=== PATIENT | male | born 1965 | race Caucasian/White ===

== ENCOUNTER 2016-09-16 23:24 | Inpatient (IN) | payer SELFPAY ==
[~2016-09-16] VITALS: Ht 167.6 cm; Wt 77.7 kg
[2016-09-16 23:28] VITALS: BP 128/67; PULSE 106; RESP 15; TEMP 98.8; O2SAT 96
[2016-09-17] VITALS (7 sets, daily range): BP systolic 112–160; BP diastolic 68–88; PULSE 61–79; RESP 16–18; TEMP 97–97.5; O2SAT 94–97
--- NOTE | 2016-09-17 01:16 | PD ---
HPI Chief Complaint: Injury Time Seen by Provider: 01:13 Travel History International Travel<30 days: No Contact w/Intl Traveler<30days: No Traveled to known affect area: No History of Present Illness HPI 51-year-old white male presents to emergency department for evaluation of right ankle pain and swelling. He states he had a inversion injury down in [place] one week ago. He was states that he was seen in the emergency department had an x- ray. He was told that the ankle was severely sprain but not broken. He was given Maxim wrap and crutches. He states that he's been partially ambulatory on the foot and has noted increasing swelling in his ankle into the foot. States it throbs worse at night when he lays down and his foot in bed. He denies any numbness or tingling. He denies any other injuries. Pain is mild to moderate. PFSH Past Medical History Medical History: Denies Significant Hx Tetanus Vaccination: < 5 Years Past Surgical History Narrative Surgical Left hamstring tear Social History Alcohol Use: Yes Tobacco Use: Yes Allergies-Medications (Allergen,Severity, Reaction): Coded Allergies: No Known Allergies (Unverified , 09/17/16) Reported Meds & Prescriptions Reported Meds & Active Scripts Active No Active Prescriptions or Reported Medications Review of Systems Except as stated in HPI: all other systems reviewed are Neg Physical Exam Narrative GENERAL: Well-developed, well-nourished in no acute distress. Nontoxic appearing. HEAD: Normocephalic, atraumatic. EYES: Pupils equal round and reactive. Extraocular motions intact. No scleral icterus. No injection or drainage. ENT: TMs clear without erythema. The external auditory canals clear. Nose: clear . Posterior pharynx is pink and moist. No tonsillar edema or exudate. Uvula midline. Airway patent. NECK: Trachea midline.Supple, nontender, moves head freely. No central bony tenderness or spasm. CARDIOVASCULAR: Regular rate and rhythm without murmurs, gallops, or rubs. RESPIRATORY: Clear to auscultation. Breath sounds equal bilaterally. No wheezes , rales, or rhonchi. GASTROINTESTINAL: Abdomen soft, non-tender, nondistended. No hepato-splenomegaly , or palpable masses. No guarding. EXTREMITIES: Examination of the right lower extremity reveals mild to moderate swelling of the foot up into the ankle. He has pain over the lateral malleolus as well as the anterior talar fibular ligament region. No pain in the medial malleolus. No pain in the heel, Achilles, forefoot or toes. No pain in the knee or hip. The skin is intact. There is an area of resolving ecchymosis to the arch of the foot. He has intact dorsalis pedis pulse. Good Refill. BACK: Nontender without deformity or crepitance. No flank tenderness. Data Data Last Documented VS Vital Signs Date Time Temp Pulse Resp B/P Pulse Ox O2 Delivery O2 Flow Rate FiO2 09/16/16 23:28 98.8 106 15 128/67 96 Room Air Orders Ankle, Complete ([id number]) (09/17/16 01:12) Splint Or Brace Apply/Monitor (09/17/16 01:12) Splint Or Brace Apply/Monitor (09/17/16 02:10) Acetamin-Hydrocod 325-5 Mg ([place] 5-325 (09/17/16 02:15) Electrocardiogram (09/17/16 02:21) Complete Blood Count With Diff (09/17/16 02:21) Comprehensive Metabolic Panel (09/17/16 02:21) Prothrombin Time / Inr (Pt) (09/17/16 02:21) Act Partial Throm Time (Ptt) (09/17/16 02:21) Ua Includes Microscopic (09/17/16 02:21) Chest, Single Ap (09/17/16 02:21) Type And Screen (09/17/16 02:21) Admit To Inpatient (09/17/16 ) Vital Signs (Adult) Q4H (09/17/16 03:34) Activity Bed Rest (09/17/16 03:34) Intake + Output GISSELL.QSHIFT (09/17/16 03:34) Diet Npo (09/17/16 Breakfast) Sodium Chlor 0.9% 1000 Ml Inj (Ns 1000 M (09/17/16 03:34) Sodium Chloride 0.9% Flush (Ns Flush) (09/17/16 03:45) Sodium Chloride 0.9% Flush (Ns Flush) (09/17/16 09:00) Ondansetron Inj (Zofran Inj) (09/17/16 03:45) Bisacodyl Supp (Dulcolax Supp) (09/17/16 03:45) Comprehensive Metabolic Panel (09/18/16 06:00) Complete Blood Count With Diff (09/18/16 06:00) Acetaminophen (Tylenol) (09/17/16 03:45) Acetamin-Hydrocod 325-5 Mg ([place] 5-325 (09/17/16 03:45) Morphine Inj (Morphine Inj) (09/17/16 03:45) Inpatient Certification (09/17/16 ) Admit Order (Ed Use Only) (09/17/16 04:38) Consult Orthopedic (09/17/16 ) Labs Laboratory Tests Test 09/17/16 09/17/16 02:00 03:00 White Blood Count 8.4 TH/MM3 Red Blood Count 4.15 MIL/MM3 Hemoglobin 14.2 GM/DL Hematocrit 40.6 % Mean Corpuscular Volume 97.8 FL Mean Corpuscular Hemoglobin 34.2 PG Mean Corpuscular Hemoglobin 35.0 % Concent Red Cell Distribution Width 13.1 % Platelet Count 176 TH/MM3 Mean Platelet Volume 9.9 FL Neutrophils (%) (Auto) 57.9 % Lymphocytes (%) (Auto) 32.1 % Monocytes (%) (Auto) 7.6 % Eosinophils (%) (Auto) 1.9 % Basophils (%) (Auto) 0.5 % Neutrophils # (Auto) 4.9 TH/MM3 Lymphocytes # (Auto) 2.7 TH/MM3 Monocytes # (Auto) 0.6 TH/MM3 Eosinophils # (Auto) 0.2 TH/MM3 Basophils # (Auto) 0.0 TH/MM3 CBC Comment DIFF FINAL Differential Comment Prothrombin Time 10.4 SEC Prothromb Time International 0.9 RATIO Ratio Activated Partial 28.0 SEC Thromboplast Time Sodium Level 141 MEQ/L Potassium Level 4.2 MEQ/L Chloride Level 106 MEQ/L Carbon Dioxide Level 26.1 MEQ/L Anion Gap 9 MEQ/L Blood Urea Nitrogen 7 MG/DL Creatinine 0.63 MG/DL Estimat Glomerular Filtration 134 ML/MIN Rate Random Glucose 91 MG/DL Calcium Level 8.9 MG/DL Total Bilirubin 0.3 MG/DL Aspartate Amino Transf 34 U/L (AST/SGOT) Alanine Aminotransferase 49 U/L (ALT/SGPT) Alkaline Phosphatase 65 U/L Total Protein 7.3 GM/DL Albumin 4.0 GM/DL Blood Type O POSITIVE Antibody Screen NEGATIVE Blood Bank Comment Urine Color LIGHT-YELLOW Urine Turbidity CLEAR Urine pH 5.0 Urine Specific [place] 1.003 Urine Protein NEG mg/dL Urine Glucose (UA) NEG mg/dL Urine Ketones NEG mg/dL Urine Occult Blood NEG Urine Nitrite NEG Urine Bilirubin NEG Urine Urobilinogen LESS THAN 2.0 MG/DL Urine Leukocyte Esterase NEG Urine RBC LESS THAN 1 /hpf Urine WBC LESS THAN 1 /hpf MDM Medical Decision Making Medical Screen Exam Complete: Yes Emergency Medical Condition: Yes Medical Record Reviewed: Yes Interpretation(s) Right ankle: Negative for acute fracture. Positive soft tissue swelling. Differential Diagnosis MDM: High Differential diagnoses: Fracture, sprain, strain, dislocation, contusion, neurovascular injury Narrative Course X-ray of the right ankle is negative. He is given Maxim wrap. He is encouraged to continue use his crutches. This is right ankle sprain Physician Communication Physician Communication We have attempted to call Dr. Ludwig since approximately 2:15 this evening. We have placed over 4 phone calls. At 0440 We have opted to go ahead and admit to the [facility] service. Dr. Randall has accepted his admission and has requested a consult be placed for him in the morning. Diagnosis Primary Impression: right distal fibular fracture with open mortise Scripts No Active Prescriptions or Reported Meds Condition: Stable Endy Velasquez Sep 17, 2016 01:16 Elevation. Ice packs for the next 3 days. Maxim wrap and crutches. No weight-bearing and then progress to weight-bearing as tolerated. Continued 3 Advil every 6 hours. Follow-up with an orthopedist or your doctor in one week. Return to the ER if any problems Med/Other Pt SpecificInfo: No Meds Exist/No RX given Scripts No Active Prescriptions or Reported Meds Disposition: DISCHARGE HOME Condition: Endy Rodriges Sep 17, 2016 01:16
--- NOTE | 2016-09-17 02:00 | RADRPT ---
EXAM DATE/TIME: 09/17/2016 01:34 [facility] COMPARISON: No previous studies available for comparison. INDICATIONS : Fall. Right ankle pain and swelling. MEDICAL HISTORY : None. SURGICAL HISTORY : None. ENCOUNTER: Initial ACUITY: 4 - 6 days PAIN SCORE: 8/10 LOCATION: Right lateral FINDINGS: Mildly comminuted oblique fracture seen of the distal fibula with a few millimeters of posterior disp lacement. Most of the fracture is at the level of the tibiotalar joint. There is slight lateral sublu xation of the ankle mortise. The distal tibia is intact. CONCLUSION: Mildly displaced distal fibula fracture. Slight lateral subluxation of the tibiotalar joint. Brandon Cross MD on September 17, 2016 at 1:57 Board Certified Radiologist. This report was verified electronically.
[2016-09-17] MEDS ORDERED: ACETAMINOPHEN/HYDROcodone 325 MG/5 MG TAB PO ONE (02:15)
[2016-09-17 03:24] LABS: AUTOMATED NEUTROPHIL # 4.9 TH/MM3 (1.8-7.7); BASOPHIL % 0.5 % (0.0-2.0); EOSINOPHIL # 0.2 TH/MM3 (0-0.4); EOSINOPHIL % 1.9 % (0.0-4.0); HEMATOCRIT 40.6 % (39.0-51.0); HEMO FLAGS DIFF FINAL; LYMPH % 32.1 % (9.0-44.0); LYMPHOCYTE # 2.7 TH/MM3 (1.0-4.8); MEAN CELL VOLUME 97.8 FL (80.0-100.0); MEAN CORPUSCULAR HEMOGLOBIN 34.2 PG (27.0-34.0); MONO % 7.6 % (0.0-8.0); NEUT % 57.9 % (16.0-70.0); PLATELET COUNT 176 TH/MM3 (150-450); RED BLOOD COUNT 4.15 MIL/MM3 (4.50-5.90); RED CELL DISTRIBUTION WIDTH 13.1 % (11.6-17.2); WHITE BLOOD COUNT 8.4 TH/MM3 (4.0-11.0)
--- NOTE | 2016-09-17 03:30 | RADRPT ---
EXAM DATE/TIME: 09/17/2016 02:53 [facility] COMPARISON: No previous studies available for comparison. INDICATIONS : Cough. Pre op. MEDICAL HISTORY : None. SURGICAL HISTORY : None. ENCOUNTER: Initial ACUITY: 1 day PAIN SCORE: 2/10 LOCATION: Bilateral chest FINDINGS: A single view of the chest demonstrates the lungs to be symmetrically aerated without evidence of mas s, infiltrate or effusion. The cardiomediastinal contours are unremarkable. Osseous structures are intact. CONCLUSION: No evidence of acute cardiopulmonary disease. Brandon Cross MD on September 17, 2016 at 3:28 Board Certified Radiologist. This report was verified electronically.
[2016-09-17 03:36] LABS: INTERNATIONAL NORMALIZED RATIO 0.9 RATIO; PROTHROMBIN TIME - PATIENT 10.4 SEC (9.8-11.6)
[2016-09-17 03:39] LABS: ALT (GPT) 49 U/L (12-78); ANION GAP 9 MEQ/L (5-15); AST (GOT) 34 U/L (15-37); BICARBONATE 26.1 MEQ/L (21.0-32.0); BLOOD UREA NITROGEN 7 MG/DL (7-18); CHLORIDE 106 MEQ/L (98-107); GLOMERULAR FILTRATION RATE 134 ML/MIN (>89); POTASSIUM 4.2 MEQ/L (3.5-5.1); SODIUM (NA) 141 MEQ/L (136-145)
[2016-09-17 03:41] LABS: ALKALINE PHOSPHATASE 65 U/L (45-117); TOTAL BILIRUBIN ADULT 0.3 MG/DL (0.2-1.0)
[2016-09-17] MEDS ORDERED: BISACODYL 10 MG SUPP RECTAL PRN (03:45)
[2016-09-17] MEDS ORDERED: SODIUM CHLORIDE 0.9% FLUSH 10 ML FLUSH IV FLUSH PRN (03:45)
[2016-09-17] MEDS ORDERED: ONDANSETRON HCL 4 MG/2 ML VIAL IVP PRN (03:45)
[2016-09-17] MEDS ORDERED: ACETAMINOPHEN 325 MG TAB PO PRN (03:45)
[2016-09-17] MEDS: SODIUM CHLOR 0.9% 1000 ML INJ 1,000 ML IV SCH ×3 (04:15→23:34)
[2016-09-17] MEDS: MORPHINE SULFATE 4 MG/ML INJ IV PRN ×4 (04:15→21:10)
[2016-09-17 04:30] LABS: BLOOD, URINE NEG (NEG); GLUCOSE,URINE NEG (NEG); KETONE, URINE NEG (NEG); NITRITE,URINE NEG (NEG); URINE COLOR LIGHT-YELLOW (YELLW/STRAW)
--- NOTE | 2016-09-17 04:56 | HHI.HP ---
[facility] Primary Care Physician No Primary Care Physician Admission Diagnosis right distal fibular fracture with open mortise Diagnoses: (1) Ankle fracture Diagnosis: Principal (2) Tobacco abuse Diagnosis: Principal Travel History International Travel<30 Days: No Contact w/Intl Traveler <30 Da: No Traveled to Known Affected Are: No History of Present Illness This is a 51-year-old male with no significant PMH who presented to the ER with complaints of right ankle pain and swelling x1 wk. States had right ankle injury approx 1wk ago in [place], seen at local ER s/p X-ray and told had Ankle Sprain, no fracture. Has been using crutches w/ occasional weight baring on right ankle, now w/ increased pain and swelling. On arrival, BP 128/67, HR 106, O2 sat 96% on RA, Afebrile. CBC unremarkable. Chemistry unremarkable. UA negative. INR 0.9. CXR with no acute findings. Ankle X-ray with mildly displaced distal fibula fracture, slight lateral subluxation of the tibiotalar joint. Dr. Matos consulted by ER physician, pending eval w/ possible plan for surgical intervention. Review of Systems Except as stated in HPI: all other systems reviewed are Neg ROS: 14 point review of systems otherwise negative. Past Family Social History Past Medical History PMH: None Past Surgical History PAST SURGICAL HISTORY: Left Hamstring Tear Allergies: Coded Allergies: No Known Allergies (Unverified , 09/17/16) Family History PAST FAMILY HISTORY: Reviewed. No h/o DM or CAD Social History PAST SOCIAL HISTORY: Occasional alcohol. Positive for tobacco. Negative for drugs. Physical Exam Vital Signs Vital Signs Date Time Temp Pulse Resp B/P Pulse Ox O2 Delivery O2 Flow Rate FiO2 09/16/16 23:28 98.8 106 15 128/67 96 Room Air Physical Exam PE: GENERAL: Middle-aged male in no acute distress. HEENT: PERRLA, EOMI. No scleral icterus or conjunctival pallor. No lid lag or facial droop. CARDIOVASCULAR: Regular rate and rhythm. No obvious murmurs to auscultation. No chest tenderness to palpation. RESPIRATORY: No obvious rhonchi or wheezing. Clear to auscultation. Breath sounds equal bilaterally. GASTROINTESTINAL: Abdomen soft, non-tender, nondistended. BS normal. MUSCULOSKELETAL: Extremities without clubbing, cyanosis, or edema. No obvious deformities. RLE w/ decreased ROM due to injury, +swelling. NEUROLOGICAL: Awake, alert and oriented x4. No focal neurologic deficits. Moving both upper and lower extremities spontaneously. Laboratory Laboratory Tests Test 09/17/16 09/17/16 02:00 03:00 White Blood Count 8.4 Red Blood Count 4.15 Hemoglobin 14.2 Hematocrit 40.6 Mean Corpuscular Volume 97.8 Mean Corpuscular Hemoglobin 34.2 Mean Corpuscular Hemoglobin 35.0 Concent Red Cell Distribution Width 13.1 Platelet Count 176 Mean Platelet Volume 9.9 Neutrophils (%) (Auto) 57.9 Lymphocytes (%) (Auto) 32.1 Monocytes (%) (Auto) 7.6 Eosinophils (%) (Auto) 1.9 Basophils (%) (Auto) 0.5 Neutrophils # (Auto) 4.9 Lymphocytes # (Auto) 2.7 Monocytes # (Auto) 0.6 Eosinophils # (Auto) 0.2 Basophils # (Auto) 0.0 CBC Comment DIFF FINAL Differential Comment Prothrombin Time 10.4 Prothromb Time International 0.9 Ratio Activated Partial 28.0 Thromboplast Time Sodium Level 141 Potassium Level 4.2 Chloride Level 106 Carbon Dioxide Level 26.1 Anion Gap 9 Blood Urea Nitrogen 7 Creatinine 0.63 Estimat Glomerular Filtration 134 Rate Random Glucose 91 Calcium Level 8.9 Total Bilirubin 0.3 Aspartate Amino Transf 34 (AST/SGOT) Alanine Aminotransferase 49 (ALT/SGPT) Alkaline Phosphatase 65 Total Protein 7.3 Albumin 4.0 Blood Type O POSITIVE Antibody Screen NEGATIVE Blood Bank Comment Urine Color LIGHT-YELLOW Urine Turbidity CLEAR Urine pH 5.0 Urine Specific [place] 1.003 Urine Protein NEG Urine Glucose (UA) NEG Urine Ketones NEG Urine Occult Blood NEG Urine Nitrite NEG Urine Bilirubin NEG Urine Urobilinogen LESS THAN 2.0 Urine Leukocyte Esterase NEG Urine RBC LESS THAN 1 Urine WBC LESS THAN 1 Result Diagram: 09/17/16 0200 09/17/16 0200 Assessment and Plan Problem List: (1) Ankle fracture ICD Code: S82.899A Status: Acute (2) Tobacco abuse ICD Code: Z72.0 Status: Acute Assessment and Plan A/P: 1. Right Ankle Fx: s/p injury approx 1wk ago in [place], told had Ankle Sprain, using crutches w/ some weight baring, now w/ increasing pain/swelling. Ankle X-ray w/ mildly displaced distal fibula fracture, slight lateral subluxation of tibiotalar joint, images reviewed by me. Dr. Matos consulted by ER physician, pending call back for eval, possible surgical intervention. NPO, IVF, analgesics/antiemetics as needed. 2. Tobacco Abuse: Pt counselled on the need to quit. NicoDerm prn if needed. 3. DVT Prophylaxis: Anticoagulation post op per Ortho 4. Social work for d/c planning as needed. 5. Case discussed w/ ER physician at length. Physician Certification 2 Midnight Certification Type: Admission for Inpatient Services Order for Inpatient Services The services are ordered in accordance with Medicare regulations or non- Medicare payer requirements, as applicable. In the case of services not specified as inpatient-only, they are appropriately provided as inpatient services in accordance with the 2-midnight benchmark. Estimated LOS (days): 2 days is the estimated time the patient will need to remain in the hospital, assuming treatment plan goals are met and no additional complications. Post-Hospital Plan: Not yet determined Ida Randall MD Sep 17, 2016 04:56
[2016-09-17] MEDS: ACETAMINOPHEN/HYDROcodone 325 MG/5 MG TAB PO PRN ×4 (06:20→21:08)
[2016-09-17] MEDS: SODIUM CHLORIDE 0.9% FLUSH 10 ML FLUSH IV FLUSH SCH ×2 (09:38→21:08)
[2016-09-17] MEDS ORDERED: FAMOTIDINE 20 MG/2 ML VIAL ONE (16:55)
[2016-09-17] MEDS ORDERED: MIDAZOLAM HCL 2 MG/2 ML VIAL ONE (16:55)
[2016-09-17] MEDS ORDERED: MIDAZOLAM HCL 2 MG/2 ML VIAL IV PRN (17:30)
[2016-09-17] MEDS ORDERED: FAMOTIDINE 20 MG/2 ML VIAL IV ONE (17:30)
--- NOTE | 2016-09-17 18:28 | PD.CONS ---
cc: Tiago Matos Jr., MD HPI [facility] Consult Requested By Primary Care Physician No Primary Care Physician Admission Diagnosis right distal fibular fracture with open mortise Diagnoses: (1) Ankle fracture (2) Tobacco abuse History of Present Illness This is a 51-year-old male with no significant PMH who presented to the ER with complaints of right ankle pain and swelling x1 wk. States had right ankle injury approx 1wk ago in [place], seen at local ER s/p X-ray and told had Ankle Sprain, no fracture. Has been using crutches w/ occasional weight baring on right ankle, now w/ increased pain and swelling. Denies any head injuries. Denies loss of consciousness. Currently patient's pain is 3 out of 10, exacerbated by any range of motion and WB, relieved at rest and with IV pain medicine, pain is throbbing, not associated with any paresthesia and numbness to the right lower extremity. he denies any chest pain or shortness of breath. he is not on any anticoagulants. ROS - General Review of Systems Except as stated in HPI: all other systems reviewed are Neg ROS: 14 point review of systems otherwise negative. PFSH Past Family Social History Past Medical History PMH: None Past Surgical History PAST SURGICAL HISTORY: Left Hamstring Tear Allergies: Coded Allergies: No Known Allergies (Unverified , 09/17/16) Family History PAST FAMILY HISTORY: Reviewed. No h/o DM or CAD Social History PAST SOCIAL HISTORY: Occasional alcohol. Positive for tobacco. Negative for drugs. Review of Systems Constitutional: DENIES: Diaphoretic episodes, Fatigue, Fever, Weight gain, Weight loss, Chills, Dizziness, Change in appetite, Night Sweats Endocrine: DENIES: Heat/cold intolerance, Polydipsia, Polyuria, Polyphagia Ears, nose, mouth, throat: DENIES: Tinnitus, Hearing loss, Vertigo, Nasal discharge, Oral lesions, Throat pain, Hoarseness, Ear Pain, Running Nose, Epistaxis, Sinus Pain, Toothache, Odynophagia Respiratory: DENIES: Apneas, Cough, Snoring, Wheezing, Hemoptysis, Sputum production, Shortness of breath Cardiovascular: DENIES: Chest pain, Palpitations, Syncope, Dyspnea on Exertion , PND, Lower Extremity Edema, Orthopnea, Claudication Past Family Social History Past Medical History PMH: None Past Surgical History PAST SURGICAL HISTORY: Left Hamstring Tear Allergies: Coded Allergies: No Known Allergies (Unverified , 09/17/16) Active Ordered Medications Current Medications Medications (Trade) Dose Ordered Sig/Philip Route Start Time Stop Time Status Last Admin (NS 1000 ml Inj) 1,000 ml @ 100 mls/hr Q10H IV 09/17/16 03:34 09/17/16 13:48 (NS Flush) 2 ml UNSCH PRN IV FLUSH 09/17/16 03:45 (NS Flush) 2 ml BID IV FLUSH 09/17/16 09:00 09/17/16 09:38 (Zofran Inj) 4 mg Q6H PRN IVP 09/17/16 03:45 09/17/16 04:16 (Dulcolax Supp) 10 mg DAILY PRN RECTAL 09/17/16 03:45 (Tylenol) 650 mg Q6H PRN PO 09/17/16 03:45 ([place] 5-325 Mg) 1 tab Q4H PRN PO 09/17/16 03:45 09/17/16 13:50 (Morphine Inj) 2 mg Q3H PRN IV 09/17/16 03:45 09/17/16 13:56 Reported Meds & Active Scripts Active No Active Prescriptions or Reported Medications Family History PAST FAMILY HISTORY: Reviewed. No h/o DM or CAD Social History PAST SOCIAL HISTORY: Occasional alcohol. Positive for tobacco. Negative for drugs. Physical Exam Vital Signs Vital Signs Date Time Temp Pulse Resp B/P Pulse Ox O2 Delivery O2 Flow Rate FiO2 09/17/16 16:50 98.3 78 16 147/79 97 09/17/16 16:50 78 09/17/16 15:45 97.5 63 17 160/77 96 09/17/16 11:52 97.2 70 17 132/81 94 09/17/16 08:31 97.1 73 17 129/73 96 09/17/16 05:06 79 18 112/68 95 Room Air 09/16/16 23:28 98.8 106 15 128/67 96 Room Air Physical Exam Alert awake and oriented x 3. No acute distress. Head: NC/AT Neck: No pain with any range of motion and neck. No tenderness to palpation along posterior cervical elements. Negative [place]. Pulmonary: Normal respiratory effort. Bilateral upper extremity: No deformity. Intact sensation distally in median, ulnar, and radial nerve. Intact motor in anterior interosseous, posterior interosseous, and ulnar nerve. 2+ radial artery pulses. Good cap refill. RIGHT lower extremity: Splint in place. Toes are warm well perfused. Grossly neuro intact. +EHL/FHL, + PT/DP pulses. Supple compartments. Laboratory Laboratory Tests Test 09/17/16 09/17/16 02:00 03:00 White Blood Count 8.4 Red Blood Count 4.15 Hemoglobin 14.2 Hematocrit 40.6 Mean Corpuscular Volume 97.8 Mean Corpuscular Hemoglobin 34.2 Mean Corpuscular Hemoglobin 35.0 Concent Red Cell Distribution Width 13.1 Platelet Count 176 Mean Platelet Volume 9.9 Neutrophils (%) (Auto) 57.9 Lymphocytes (%) (Auto) 32.1 Monocytes (%) (Auto) 7.6 Eosinophils (%) (Auto) 1.9 Basophils (%) (Auto) 0.5 Neutrophils # (Auto) 4.9 Lymphocytes # (Auto) 2.7 Monocytes # (Auto) 0.6 Eosinophils # (Auto) 0.2 Basophils # (Auto) 0.0 CBC Comment DIFF FINAL Differential Comment Prothrombin Time 10.4 Prothromb Time International 0.9 Ratio Activated Partial 28.0 Thromboplast Time Sodium Level 141 Potassium Level 4.2 Chloride Level 106 Carbon Dioxide Level 26.1 Anion Gap 9 Blood Urea Nitrogen 7 Creatinine 0.63 Estimat Glomerular Filtration 134 Rate Random Glucose 91 Calcium Level 8.9 Total Bilirubin 0.3 Aspartate Amino Transf 34 (AST/SGOT) Alanine Aminotransferase 49 (ALT/SGPT) Alkaline Phosphatase 65 Total Protein 7.3 Albumin 4.0 Blood Type O POSITIVE Antibody Screen NEGATIVE Blood Bank Comment Urine Color LIGHT-YELLOW Urine Turbidity CLEAR Urine pH 5.0 Urine Specific [place] 1.003 Urine Protein NEG Urine Glucose (UA) NEG Urine Ketones NEG Urine Occult Blood NEG Urine Nitrite NEG Urine Bilirubin NEG Urine Urobilinogen LESS THAN 2.0 Urine Leukocyte Esterase NEG Urine RBC LESS THAN 1 Urine WBC LESS THAN 1 Result Diagram: 09/17/16 02009/17/16 020 Imaging Last 72 hours Impressions Chest X-Ray 09/17/16 0221 Signed Impressions: Service Date/Time: Saturday, September 17, 2016 02:53 - CONCLUSION: No evidence of acute cardiopulmonary disease. Brandon Cross MD Ankle X-Ray 09/17/16 0112 Signed Impressions: Service Date/Time: Saturday, September 17, 2016 01:34 - CONCLUSION: Mildly displaced distal fibula fracture. Slight lateral subluxation of the tibiotalar joint. Brandon Cross MD Assessment & Plan Assessment and Plan 51-year-old male overall healthy sustained an injury to her right ankle about a week ago while in the [place]. He presents with persistent right ankle pain to the emergency department. X-rays examination at that time revealed a displaced right bimalleolar fracture. This fracture is unstable and requires open reduction internal fixation. I discussed my treatment plans with the patient, as well as risks, benefits and alternatives of surgical Intervention versus nonoperative treatment. In this case, the risks of operative intervention involves bleeding, infection, risks of damage to neurovascular structures, the risk of needing further surgery, posttraumatic arthritis and the risks involved with complication from anesthesia. We will proceed with the above procedure. The patient accepts these risks; understands and agrees with my recommendations. I also discussed my proposed postoperative care and follow-up plan. All questions were answered. Plan for OR []. Nothing by mouth []. Patient consented. Thanks for the consult, thanks for allowing me to participate in this patient's medical care. Tiago Matos Jr., MD Sep 17, 2016 18:28
--- NOTE | 2016-09-17 19:05 | EKG ---
Date Performed: 09/17/2016 Time Performed: 03:37:19 PTAGE: 51 years EKG: Sinus rhythm ARM LEADS REVERSED ATYPICAL ECG PREVIOUS TRACING : 09/17/2016 03.36 DOCTOR: Jorge Montes Interpretating Date/Time 09/17/2016 19:04:52
[2016-09-17] MEDS ORDERED: TEMAZEPAM 7.5 MG CAP PO ONE (20:15)
[2016-09-18] MEDS: MORPHINE SULFATE 4 MG/ML INJ IV PRN ×3 (00:34→08:29)
[2016-09-18] MEDS: ACETAMINOPHEN/HYDROcodone 325 MG/5 MG TAB PO PRN ×2 (03:31→08:29)
[2016-09-18 03:47] VITALS: BP 152/93; PULSE 55; RESP 17; TEMP 97.2; O2SAT 97
[2016-09-18 05:26] LABS: BASOPHIL % 0.3 % (0.0-2.0); EOSINOPHIL # 0.2 TH/MM3 (0-0.4); EOSINOPHIL % 2.5 % (0.0-4.0); HEMATOCRIT 39.7 % (39.0-51.0); HEMO FLAGS DIFF FINAL; LYMPH % 29.7 % (9.0-44.0); LYMPHOCYTE # 2.1 TH/MM3 (1.0-4.8); MEAN CORPUSCULAR HGB CONC 33.3 % (32.0-36.0); MONO % 10.6 % (0.0-8.0); NEUT % 56.9 % (16.0-70.0); PLATELET COUNT 148 TH/MM3 (150-450); RED BLOOD COUNT 4.01 MIL/MM3 (4.50-5.90); RED CELL DISTRIBUTION WIDTH 12.8 % (11.6-17.2); WHITE BLOOD COUNT 7.1 TH/MM3 (4.0-11.0)
[2016-09-18 05:46] LABS: ALKALINE PHOSPHATASE 58 U/L (45-117); ALT (GPT) 41 U/L (12-78); ANION GAP 4 MEQ/L (5-15); AST (GOT) 27 U/L (15-37); BICARBONATE 30.6 MEQ/L (21.0-32.0); BLOOD UREA NITROGEN 10 MG/DL (7-18); CHLORIDE 105 MEQ/L (98-107); GLOMERULAR FILTRATION RATE 95 ML/MIN (>89); POTASSIUM 4.6 MEQ/L (3.5-5.1); SODIUM (NA) 140 MEQ/L (136-145); TOTAL BILIRUBIN ADULT 0.3 MG/DL (0.2-1.0)
[2016-09-18 07:52] VITALS: BP 142/97; PULSE 71; RESP 16; TEMP 97.3; O2SAT 96
[2016-09-18] MEDS: SODIUM CHLORIDE 0.9% FLUSH 10 ML FLUSH IV FLUSH SCH ×3 (08:31→23:59)
[2016-09-18] MEDS: SODIUM CHLOR 0.9% 1000 ML INJ 1,000 ML IV SCH ×2 (08:31→18:21)
[2016-09-18] MEDS ORDERED: PERC5TAB12 PO (10:33)
[2016-09-18] MEDS ORDERED: VANCOMYCIN HCL 1000 MG VIAL ONE (10:49)
[2016-09-18] MEDS ORDERED: GENTAMICIN SULFATE 80 MG/2 ML VIAL ONE (10:50)
[2016-09-18 11:37] VITALS: BP 144/93; PULSE 61; RESP 16; TEMP 97.2; O2SAT 98
--- NOTE | 2016-09-18 11:56 | HHI.PR ---
Subjective Remarks pain controlled denies cp/sob awaiting for surgery stable vital signs Objective Vitals Vital Signs Date Time Temp Pulse Resp B/P Pulse Ox O2 Delivery O2 Flow Rate FiO2 09/18/16 07:52 97.3 71 16 142/97 96 09/18/16 03:47 97.2 55 17 152/93 97 09/17/16 23:51 97.0 61 17 130/74 96 09/17/16 19:40 97.1 76 16 141/88 97 09/17/16 18:55 Room Air 09/17/16 16:50 98.3 78 16 147/79 97 09/17/16 16:50 78 09/17/16 15:45 97.5 63 17 160/77 96 I/O 09/17/16 09/17/16 09/17/16 09/18/16 09/18/16 09/18/16 07:00 15:00 23:00 07:00 15:00 23:00 Intake Total 195 ml 541 ml 720 ml 0 ml Output Total 650 ml 600 ml Balance 195 ml 541 ml 70 ml -600 ml Intake Oral 0 ml 720 ml 0 ml IV Total 195 ml 541 ml Output Urine Total 650 ml 600 ml # Voids 3 # Bowel Movements 0 Result Diagram: 09/18/16 0501 09/18/16 0501 Imaging Last Impressions Chest X-Ray 09/17/16 0221 Signed Impressions: Service Date/Time: Saturday, September 17, 2016 02:53 - CONCLUSION: No evidence of acute cardiopulmonary disease. Brandon Cross MD Ankle X-Ray 09/17/16 0112 Signed Impressions: Service Date/Time: Saturday, September 17, 2016 01:34 - CONCLUSION: Mildly displaced distal fibula fracture. Slight lateral subluxation of the tibiotalar joint. Brandon Cross MD Objective Remarks GENERAL: Middle-aged male in no acute distress. HEENT: PERRLA, EOMI. No scleral icterus or conjunctival pallor. No lid lag or facial droop. CARDIOVASCULAR: Regular rate and rhythm. No obvious murmurs to auscultation. No chest tenderness to palpation. RESPIRATORY: No obvious rhonchi or wheezing. Clear to auscultation. Breath sounds equal bilaterally. GASTROINTESTINAL: Abdomen soft, non-tender, nondistended. BS normal. MUSCULOSKELETAL: Extremities without clubbing, cyanosis, or edema. No obvious deformities. RLE w/ decreased ROM due to injury, +swelling. NEUROLOGICAL: Awake, alert and oriented x4. No focal neurologic deficits. Moving both upper and lower extremities spontaneously. Medications and IVs Current Medications Medications (Trade) Dose Ordered Sig/Philip Route Start Time Stop Time Status Last Admin (NS 1000 ml Inj) 1,000 ml @ 100 mls/hr Q10H IV 09/17/16 03:34 09/17/16 13:48 (NS Flush) 2 ml UNSCH PRN IV FLUSH 09/17/16 03:45 (NS Flush) 2 ml BID IV FLUSH 09/17/16 09:00 09/18/16 08:31 (Zofran Inj) 4 mg Q6H PRN IVP 09/17/16 03:45 09/17/16 04:16 (Dulcolax Supp) 10 mg DAILY PRN RECTAL 09/17/16 03:45 (Tylenol) 650 mg Q6H PRN PO 09/17/16 03:45 ([place] 5-325 Mg) 1 tab Q4H PRN PO 09/17/16 03:45 09/18/16 08:29 (Morphine Inj) 2 mg Q3H PRN IV 09/17/16 03:45 09/18/16 08:29 A/P Problem List: (1) Ankle fracture ICD Code: S82.899A Status: Acute (2) Tobacco abuse ICD Code: Z72.0 Status: Acute Assessment and Plan 1. Right Ankle Fx: s/p injury approx 1wk ago in [place], told had Ankle Sprain, using crutches w/ some weight baring, now w/ increasing pain/swelling. Ankle X-ray w/ mildly displaced distal fibula fracture, slight lateral subluxation of tibiotalar joint, images reviewed by me. Dr. Matos consulted by ER physician 09/18 Patient was going to have surgery yesterday however it was postponed for today. For Or later today. Pain controlled. Continue NPO, IV fluids and pain control. 2. Tobacco Abuse: Pt counselled on the need to quit. NicoDerm prn if needed. 3. DVT Prophylaxis: Anticoagulation post op per Ortho Discharge Planning awaiting surgery Chilo Mahoney MD Sep 18, 2016 11:56
[2016-09-18] MEDS ORDERED: PHENYLEPH/NS 1000 MCG/10 ML SYR IV ONE (12:00)
[2016-09-18] MEDS ORDERED: ONDANSETRON HCL 4 MG/2 ML VIAL IV PUSH ONE (12:00)
[2016-09-18] MEDS ORDERED: ePHEDrine/NS 25 MG/5 ML SYR IV ONE (12:00)
[2016-09-18] MEDS ORDERED: PROPOFOL 200 MG/20 ML AMP IV ONE (12:00)
[2016-09-18] MEDS ORDERED: ceFAZolin INJ 1,000 MG VIAL IV ONE (13:06)
[2016-09-18] MEDS ORDERED: PROMETHAZINE HCL 25 MG TAB PO PRN (13:15)
[2016-09-18] MEDS ORDERED: MORPHINE SULFATE 8 MG/ML INJ IV PUSH PRN (13:15)
[2016-09-18] MEDS ORDERED: ONDANSETRON HCL 4 MG/2 ML VIAL IVP PRN (13:15)
[2016-09-18] MEDS ORDERED: ZOLPIDEM TARTRATE 5 MG TAB PO PRN (13:15)
[2016-09-18] MEDS ORDERED: SODIUM CHLORIDE 0.9% FLUSH 10 ML FLUSH IV FLUSH PRN (13:15)
[2016-09-18] MEDS ORDERED: Post-op Orders (for Pharmacy) MISC XX ONE (13:15)
[2016-09-18] MEDS ORDERED: oxyCODONE/ACETAMINOPHEN 5 MG/325 MG TAB PO PRN (13:15)
[2016-09-18] MEDS ORDERED: BISACODYL 10 MG SUPP RECTAL PRN (13:15)
[2016-09-18] MEDS ORDERED: MORPHINE SULFATE 4 MG/ML INJ ONE (14:31)
[2016-09-18] MEDS ORDERED: *morphine SULFATE 8 MG/ML PERIprocedure ONLY ONE ×2 (14:39→15:11)
--- NOTE | 2016-09-18 14:39 | PD.OP ---
cc: Tiago Matos Jr., MD Operative Report Date of Surgery: Sep 18, 2016 Preoperative Diagnosis: Closed right ankle bimalleolar equivalent fracture Postoperative Diagnosis: Same Procedure: Open reduction internal fixation right ankle Anesthesia: Gen. Surgeon: Tiago Matos Beaver Trapper(s): Staff Resident Surgeon: None Operation and Findings: Informed consent obtained, operative site was marked. The foot and ankle were seen and evaluated this morning. Soft tissue swelling had significantly improved and appeared to be ready for surgery. He was brought to the operating room and placed on the operating room table. He was given intravenous sedation, general endotracheal anesthesia. He received IV antibiotics and was placed in the lateral decubitus position. Foot and leg were prepped with alcohol, followed by Hibiclens, draped in usual sterile fashion. A time out procedure was preformed. The procedure began with a five inch incision over the lateral aspect fibula. A full thickness flap was carefully elevated. The fracture was identified , periosteum was elevated atthe fracture site. Attention was now turned to expose the distal end of the fibula and as much proximal as necessary to allow reduction and plate position. Attention was turned to the syndesmosis and under direct visualization the syndesmotic area was cleaned of any debris and irrigated. Using pointed reduction clamps the fibula was reduced and reduction was maintained using lag screw fixation. Reduction was confirmed under fluoroscopy. The rest of the fibula was neutralized using a lateral fibular plate with locking screws distally. Using fluoroscopy, the syndesmosis was stressed in the mortise view with the cotton test and external rotation stress test. There was widening of the medial clear space and asymmetry at the syndesmosis. Using pointed periarticular reduction clamp the syndesmosis was reduced and held, while it was fixed with 4.0mm lag screw directed from posterior lateral fibula to the anterior medial aspect of the tibia above the ankle joint. Multiplanar fluoroscopy confirmed well-aligned fracture. Final fluoroscopy was used to confirm a well-aligned fracture with well-placed hardware. Incision was thoroughly irrigated. Hemostasis was confirmed. Fascia layer was closed 2-0 Vicryl, the skin and subcutaneous tissue closed with 3-0 nylon, in vertical mattress fashion. Sterile dressings were applied. The patient was placed into a well molded padded splint. The patient was transferred to the Recovery Room in stable condition. POSTP-OP PLAN OF ACTIVITY Antibiotics: Ancef, vancomycin Antiocoagulation: Lovenox Weight bearing status: NWB Dressing: Do not remove splints/cast. Dispo: expected discharge when pain controlled. ok to dc today per ortho Tiago Matos Jr., MD Sep 18, 2016 14:39
[2016-09-18] MEDS: KETOROLAC TROMETHAMINE 30 MG/ML (IVP) VIAL IVP SCH ×3 (15:00→23:56)
[2016-09-18] MEDS ORDERED: DO NOT ADM ANY ANTICOAGULANT DRUGS PRN (15:00)
--- NOTE | 2016-09-18 15:03 | RADRPT ---
EXAM DATE/TIME: 09/18/2016 13:52 [facility] COMPARISON: ANKLE RIGHT COMPLETE ([id number]), September 17, 2016, 1:34. INDICATIONS : Post hardware placement right ankle MEDICAL HISTORY : None. SURGICAL HISTORY : None. ENCOUNTER: Subsequent ACUITY: 2 days PAIN SCORE: Non-responsive. LOCATION: Right Ankle FINDINGS: 3 intraoperative spot images of the ankle. Lateral fibular internal fixation plate and multiple trans fixing screws. CONCLUSION: Intraoperative spot images showing distal fibula hardware. Alignment is near anatomic. Bong Hernandez MD on September 18, 2016 at 15:00 Board Certified Radiologist. This report was verified electronically.
[2016-09-18 16:00] VITALS: BP 155/77; PULSE 71; RESP 16; TEMP 95.8; O2SAT 97
[2016-09-18 20:06] VITALS: BP 134/76; PULSE 71; RESP 19; TEMP 97.1; O2SAT 98
[2016-09-18] MEDS: oxyCODONE/ACETAMINOPHEN 5 MG/325 MG TAB PO PRN (20:30)
[2016-09-18] MEDS: VANCOMYCIN INJ 1,000 MG in SODIUM CHLOR 0.9% 250 ML INJ 250 ML IV SCH (23:59)
[2016-09-19 00:35] VITALS: BP 140/86; PULSE 61; RESP 18; TEMP 97.2; O2SAT 95
[2016-09-19] MEDS: ENOXAPARIN SODIUM 30 MG/0.3 ML SYRINGE SQ SCH ×2 (03:03→15:13)
[2016-09-19] MEDS: oxyCODONE/ACETAMINOPHEN 5 MG/325 MG TAB PO PRN (03:05)
[2016-09-19 04:22] VITALS: BP 145/79; PULSE 66; RESP 18; TEMP 97.7; O2SAT 96
[2016-09-19] MEDS: SODIUM CHLOR 0.9% 1000 ML INJ 1,000 ML IV SCH ×2 (05:34→15:28)
[2016-09-19] MEDS: KETOROLAC TROMETHAMINE 30 MG/ML (IVP) VIAL IVP SCH ×2 (06:36→12:47)
[2016-09-19 07:58] VITALS: BP 150/82; PULSE 69; RESP 18; TEMP 97.2; O2SAT 97
[2016-09-19] MEDS: SODIUM CHLORIDE 0.9% FLUSH 10 ML FLUSH IV FLUSH SCH ×2 (08:28→08:30)
[2016-09-19 11:12] VITALS: BP 164/93; PULSE 77; RESP 18; TEMP 98.1; O2SAT 97
--- NOTE | 2016-09-19 11:58 | HHI.PR ---
Subjective Remarks in no acute distress. pain is fairly controlled. no other complaints. Objective Vitals Vital Signs Date Time Temp Pulse Resp B/P Pulse Ox O2 Delivery O2 Flow Rate FiO2 09/19/16 07:58 97.2 69 18 150/82 97 09/19/16 06:39 Room Air 09/19/16 04:22 97.7 66 18 145/79 96 09/19/16 00:35 97.2 61 18 140/86 95 09/18/16 20:06 97.1 71 19 134/76 98 09/18/16 19:07 Nasal Cannula 2.00 09/18/16 16:00 95.8 71 16 155/77 97 09/18/16 15:34 Nasal Cannula 2.00 09/18/16 15:15 98.0 65 15 151/87 97 Nasal Cannula 3 09/18/16 15:00 72 14 151/87 97 Nasal Cannula 3 09/18/16 14:45 69 17 140/80 97 Nasal Cannula 3 09/18/16 14:30 69 17 152/85 97 Nasal Cannula 3 09/18/16 14:23 97.9 79 17 168/87 97 Nasal Cannula 3 I/O 09/18/16 09/18/16 09/18/16 09/19/16 09/19/16 09/19/16 07:00 15:00 23:00 07:00 15:00 23:00 Intake Total 0 ml 600 ml 880 ml 480 ml Output Total 600 ml 1350 ml 1000 ml Balance -600 ml -750 ml 880 ml -520 ml Intake Oral 0 ml 0 ml 480 ml 480 ml IV Total 400 ml Other 600 ml Output Urine Total 600 ml 1300 ml 1000 ml Estimated Blood Loss 50 ml # Voids 2 3 # Bowel Movements 0 0 Result Diagram: 09/18/16 0501 09/18/16 0501 Imaging Last Impressions Ankle X-Ray 09/18/16 0000 Signed Impressions: Service Date/Time: Sunday, September 18, 2016 13:52 - CONCLUSION: Intraoperative spot images showing distal fibula hardware. Alignment is near anatomic. Bong Hernandez MD Chest X-Ray 09/17/16 0221 Signed Impressions: Service Date/Time: Saturday, September 17, 2016 02:53 - CONCLUSION: No evidence of acute cardiopulmonary disease. Brandon Cross MD Objective Remarks GENERAL: This is a well-nourished, well-developed patient, in no apparent distress. CARDIOVASCULAR: Regular rate and regular rhythm without murmurs, gallops, or rubs. RESPIRATORY: Clear to auscultation. Breath sounds equal bilaterally. No wheezes , rales, or rhonchi. GASTROINTESTINAL: Abdomen soft, non-tender, nondistended. Normal, active bowel sounds MUSCULOSKELETAL: right ankle covered with clean dressing. NEURO: Alert & Oriented x4 to person, place, time, situation. Moves all ext x4 Procedures ORIF right ankle fracture. Medications and IVs Current Medications Acetaminophen/ Hydrocodone Bitart 1 tab 1 tab ONCE ONCE PO Last administered on 09/17/16 03:12; Start 09/17/16 at 02:15; Stop 09/17/16 at 02:34; Status DC Sodium Chloride (NS 1000 ml Inj) 1,000 ml @ 100 mls/hr Q10H IV Last administered on 09/17/16 13:48; Start 09/17/16 at 03:34 Sodium Chloride (NS Flush) 2 ml UNSCH PRN IV FLUSH FLUSH AFTER USING IV ACCESS ; Start 09/17/16 at 03:45 Sodium Chloride (NS Flush) 2 ml BID IV FLUSH Last administered on 09/19/16 08: 28; Start 09/17/16 at 09:00 Ondansetron HCl (Zofran Inj) 4 mg Q6H PRN IVP NAUSEA OR VOMITING Last administered on 09/17/16 04:16; Start 09/17/16 at 03:45 Bisacodyl (Dulcolax Supp) 10 mg DAILY PRN RECTAL CONSTIPATION; Start 09/17/16 at 03:45 Acetaminophen (Tylenol) 650 mg Q6H PRN PO FEVER/PAIN SCALE 1 TO 2; Start at 03:45 Acetaminophen/ Hydrocodone Bitart ([place] 5-325 Mg) 1 tab Q4H PRN PO PAIN SCALE 3 TO 5 Last administered on 09/18/16 08:29; Start 09/17/16 at 03:45 Morphine Sulfate (Morphine Inj) 2 mg Q3H PRN IV Pain 6-10 Last administered on 09/18/16 08:29; Start 09/17/16 at 03:45 Midazolam HCl (Versed Inj) 2 mg STK-MED ONCE .ROUTE ; Start 09/17/16 at 16:55; Stop 09/17/16 at 16:56; Status DC Famotidine (Pepcid Inj) 20 mg STK-MED ONCE .ROUTE ; Start 09/17/16 at 16:55; Stop 09/17/16 at 16:56; Status DC Midazolam HCl (Versed Inj) 2 mg ONCE PRN IV PRE-OP; Start 09/17/16 at 17:30; Stop 09/17/16 at 17:31; Status DC Famotidine (Pepcid Inj) 20 mg ONCE ONCE IV Last administered on 09/17/16 17: 00; Start 09/17/16 at 17:30; Stop 09/17/16 at 17:31; Status DC Temazepam (Restoril) 7.5 mg ONCE ONCE PO Last administered on 09/17/16 23:52 ; Start 09/17/16 at 20:15; Stop 09/17/16 at 20:16; Status DC Vancomycin HCl (Vancomycin Inj) 1,000 mg STK-MED ONCE .ROUTE Last administered on 09/18/16 13:13; Start 09/18/16 at 10:49; Stop 09/18/16 at 10:50; Status DC Gentamicin Sulfate (Gentamicin Inj) 240 mg STK-MED ONCE .ROUTE ; Start 09/18/16 at 10:50; Stop 09/18/16 at 10:51; Status DC Sodium Chloride (NS Flush) 2 ml UNSCH PRN IV FLUSH FLUSH AFTER USING IV ACCESS ; Start 09/18/16 at 13:15 Sodium Chloride 2 ml 2 ml BID IV FLUSH Last administered on 09/18/16 23:59; Start 09/18/16 at 21:00 Cefazolin Sodium 1000 mg/Sodium Chloride 100 ml @ 200 mls/hr Q6H IV Last administered on 09/19/16 08:28; Start 09/18/16 at 20:00; Stop 09/19/16 at 08:29; Status DC Vancomycin HCl/ Sodium Chloride (Vancomycin Inj/ NS 250 ml Inj) 250 ml @ 250 mls/hr Q12H IV Last administered on 09/18/16 23:59; Start 09/19/16 at 01:00; Stop 09/19/16 at 13:59 Miscellaneous Information (Post-op Orders (for Pharmacy)) STAT ONCE XX ; Start 09/18/16 at 13:15; Stop 09/18/16 at 14:42; Status DC Enoxaparin Sodium (Lovenox Inj) 30 mg Q12H SQ Last administered on 09/19/16 03: 03; Start 09/19/16 at 02:00 Morphine Sulfate (Morphine Inj) 5 mg Q3H PRN IV PUSH Pain >7 when off COTTON FACTOR Last administered on 09/19/16 06:37; Start 09/18/16 at 13:15 Oxycodone/ Acetaminophen (Percocet 5-325 Mg) 1 tab Q4H PRN PO PAIN LESS THAN 5 ON SCALE; Start 09/18/16 at 13:15 Oxycodone/ Acetaminophen (Percocet 5-325 Mg) 2 tab Q4H PRN PO PAIN SCALE 5 TO 10 Last administered on 09/19/16 03:05; Start 09/18/16 at 13:15 Ketorolac Tromethamine (Toradol Inj) 15 mg Q6H IVP Last administered on 06:36; Start 09/18/16 at 13:15; Stop 09/20/16 at 07:16 Promethazine HCl (Phenergan) 25 mg Q4H PRN PO NAUSEA OR VOMITING; Start at 13:15 Multivitamins/ Minerals Therapeutic (Theragran M Tab) 1 tab BID PO ; Start at 21:00; Stop 11/18/16 at 20:59 Ondansetron HCl (Zofran Inj) 4 mg Q6H PRN IVP NAUSEA OR VOMITING; Start at 13:15 Docusate Sodium (Colace) 100 mg BID PO ; Start 09/19/16 at 21:00 Zolpidem Tartrate (Ambien) 5 mg HS PRN PO SLEEP; Start 09/18/16 at 13:15 Bisacodyl (Dulcolax Supp) 10 mg DAILY PRN RECTAL CONSTIPATION; Start 09/18/16 at 13:15 Cefazolin Sodium (Ancef Inj) 1,000 mg STK-MED ONCE IV Last administered on 09/18 13:06; Start 09/18/16 at 13:06; Stop 09/18/16 at 14:07; Status DC Fentanyl Citrate (fentaNYL INJ) 100 mcg STK-MED ONCE .ROUTE ; Start 09/18/16 at 14:30; Stop 09/18/16 at 14:31; Status DC Fentanyl Citrate (fentaNYL INJ) 100 mcg STK-MED ONCE .ROUTE ; Start 09/18/16 at 14:30; Stop 09/18/16 at 14:31; Status DC Morphine Sulfate (Morphine Inj) 4 mg STK-MED ONCE .ROUTE ; Start 09/18/16 at 14: 31; Stop 09/18/16 at 14:32; Status DC Morphine Sulfate (*morphine INJ PERIprocedure ONLY) 8 mg STK-MED ONCE .ROUTE Last administered on 09/18/16 14:40; Start 09/18/16 at 14:39; Stop 09/18/16 at 14:40; Status DC Miscellaneous Information ALL NURSING DEPARTME... UNSCH PRN .XX SEE LABEL COMMENTS; Start 09/18/16 at 15:00; Stop 09/19/16 at 14:59 Morphine Sulfate (*morphine INJ PERIprocedure ONLY) 8 mg STK-MED ONCE .ROUTE Last administered on 09/18/16 15:12; Start 09/18/16 at 15:11; Stop 09/18/16 at 15:12; Status DC A/P Assessment and Plan A/P 1. Right Ankle Fx: s/p injury approx 1wk ago in [place], told had Ankle Sprain, using crutches w/ some weight baring, now w/ increasing pain/swelling. Ankle X-ray w/ mildly displaced distal fibula fracture, slight lateral subluxation of tibiotalar joint, ortho consulted- s/o ORIF- continue pain control. 2. Tobacco Abuse: Pt counselled on the need to quit. NicoDerm prn if needed. 3. DVT Prophylaxis: on Lovenox Discharge Planning when cleared by ortho. Westley Blanton MD September 19, 2016 11:58
[2016-09-19] MEDS: VANCOMYCIN INJ 1,000 MG in SODIUM CHLOR 0.9% 250 ML INJ 250 ML IV SCH (12:47)
[2016-09-19] MEDS: ACETAMINOPHEN/HYDROcodone 325 MG/5 MG TAB PO PRN (12:48)
--- NOTE | 2016-09-19 15:10 | PD.ORT.PN ---
Subjective Subjective Remarks no issues. no c/p. no SOB/CP Objective Vitals Vital Signs Date Time Temp Pulse Resp B/P Pulse Ox O2 Delivery O2 Flow Rate FiO2 09/19/16 11:12 98.1 77 18 164/93 97 09/19/16 07:58 97.2 69 18 150/82 97 09/19/16 06:39 Room Air 09/19/16 04:22 97.7 66 18 145/79 96 09/19/16 00:35 97.2 61 18 140/86 95 09/18/16 20:06 97.1 71 19 134/76 98 09/18/16 19:07 Nasal Cannula 2.00 09/18/16 16:00 95.8 71 16 155/77 97 09/18/16 15:34 Nasal Cannula 2.00 09/18/16 15:15 98.0 65 15 151/87 97 Nasal Cannula 3 I/O 09/18/16 09/18/16 09/18/16 09/19/16 09/19/16 09/19/16 07:00 15:00 23:00 07:00 15:00 23:00 Intake Total 0 ml 600 ml 880 ml 480 ml Output Total 600 ml 1350 ml 1000 ml Balance -600 ml -750 ml 880 ml -520 ml Intake Oral 0 ml 0 ml 480 ml 480 ml IV Total 400 ml Other 600 ml Output Urine Total 600 ml 1300 ml 1000 ml Estimated Blood Loss 50 ml # Voids 2 3 # Bowel Movements 0 0 Result Diagram: 09/18/16 0501 09/18/16 0501 Objective Remarks Alert awake and oriented -3. No acute distress. Pulmonary: Normal respiratory effort. Right lower extremity: Splint in place. Neurovascularly intact, +EHL/FHL, + PT/ DP pulses. Supple compartments. Negative Homans sign. Assessment & Plan Assessment and Plan POD #1open reduction internal fixation right ankle Doing well, expected postop pain, no complaints. DVT prophylaxis, Lovenox Weightbearing status: None Dressing change: Do not remove splint Dispo: Stable and okay to discharge from orthopedic standpoint. Follow-up: 2 weeks, Dr. Matos, [facility] Tiago Leal Jr., MD September 19, 2016 15:10
[2016-09-19 16:10] VITALS: BP 150/85; PULSE 79; RESP 18; TEMP 98.9; O2SAT 95
--- NOTE | 2016-09-19 16:34 | HHI.DS ---
Discharge Summary Admission Date Sep 17, 2016 at 04:42 Discharge Date: September 19, 2016 Admitting Diagnosis right distal fibular fracture with open mortise (1) Ankle fracture ICD Code: S82.899A Diagnosis: Principal (2) Tobacco abuse ICD Code: Z72.0 Diagnosis: Secondary Procedures ORIF right ankle fracture. Brief History - From Admission This is a 51-year-old male with no significant PMH who presented to the ER with complaints of right ankle pain and swelling x1 wk. States had right ankle injury approx 1wk ago in [place], seen at local ER s/p X-ray and told had Ankle Sprain, no fracture. Has been using crutches w/ occasional weight baring on right ankle, now w/ increased pain and swelling. On arrival, BP 128/67, HR 106, O2 sat 96% on RA, Afebrile. CBC unremarkable. Chemistry unremarkable. UA negative. INR 0.9. CXR with no acute findings. Ankle X-ray with mildly displaced distal fibula fracture, slight lateral subluxation of the tibiotalar joint. Dr. Matos consulted by ER physician, pending eval w/ possible plan for surgical intervention. CBC/BMP: 09/18/16 0501 09/18/16 0501 Significant Findings Laboratory Tests Test 09/17/16 09/18/16 02:00 05:01 Red Blood Count 4.15 MIL/MM3 4.01 MIL/MM3 (4.50-5.90) (4.50-5.90) Mean Corpuscular Hemoglobin 34.2 PG (27.0-34.0) Platelet Count 148 TH/MM3 (150-450) Monocytes (%) (Auto) 10.6 % (0.0-8.0) Anion Gap 4 MEQ/L (5-15) Total Protein 6.1 GM/DL (6.4-8.2) Albumin 3.3 GM/DL (3.4-5.0) Imaging Last Impressions Ankle X-Ray 09/18/16 0000 Signed Impressions: Service Date/Time: Sunday, September 18, 2016 13:52 - CONCLUSION: Intraoperative spot images showing distal fibula hardware. Alignment is near anatomic. Bong Hernandez MD Chest X-Ray 09/17/16 0221 Signed Impressions: Service Date/Time: Saturday, September 17, 2016 02:53 - CONCLUSION: No evidence of acute cardiopulmonary disease. Brandon Cross MD PE at Discharge GENERAL: This is a well-nourished, well-developed patient, in no apparent distress. CARDIOVASCULAR: Regular rate and regular rhythm without murmurs, gallops, or rubs. RESPIRATORY: Clear to auscultation. Breath sounds equal bilaterally. No wheezes , rales, or rhonchi. GASTROINTESTINAL: Abdomen soft, non-tender, nondistended. Normal, active bowel sounds MUSCULOSKELETAL: right ankle covered with clean dressing. NEURO: Alert & Oriented x4 to person, place, time, situation. Moves all ext x4 Hospital Course 1. Right Ankle Fx: s/p injury approx 1wk ago in [place], told had Ankle Sprain, using crutches w/ some weight baring, now w/ increasing pain/swelling. Ankle X-ray w/ mildly displaced distal fibula fracture, slight lateral subluxation of tibiotalar joint, ortho consulted- s/o ORIF- continue pain control. 2. Tobacco Abuse: Pt counselled on the need to quit. NicoDerm prn if needed. 3. DVT Prophylaxis: on Lovenox Pt Condition on Discharge: Good Discharge Disposition: Discharge Home Discharge Time: <= 30 minutes Discharge Instructions DIET: Follow Instructions for: As Tolerated, No Restrictions Activities you can perform: Regular-No Restrictions Westley Blanton MD September 19, 2016 16:34
[2016-09-19] MEDS ORDERED: MULTIVITAMINS/MINERALS THERAPEUTIC TAB PO SCH (21:00)
[2016-09-19] MEDS ORDERED: DOCUSATE SODIUM 100 MG CAP PO SCH (21:00)
== END 2016-09-19 16:57 | disposition home or self-care (01) | DRG 494 ==
LOC: NEPD 23:24 → NEDA 09-17 04:42 → N06A 09-17 05:39
PROVIDERS: ADMIT Internal Medicine; ATTEND Internal Medicine
PROC: 0QSL04Z Reposition Right Tarsal with Internal Fixation Device, Open Approach (ICD-10-PCS; 2016-09-18)
PROC: 0QSJ04Z Reposition Right Fibula with Internal Fixation Device, Open Approach (ICD-10-PCS; principal; 2016-09-18 12:51)
DX: S82.841A Displaced bimalleolar fracture of right lower leg, initial encounter for closed fracture (principal); S93.01XA Subluxation of right ankle joint, initial encounter; Z72.0 Tobacco use; X58.XXXA Exposure to other specified factors, initial encounter; Y93.9 Activity, unspecified; Y92.9 Unspecified place or not applicable; Y99.9 Unspecified external cause status
CPT/HCPCS: 71010; 73610; 76000; 80053; 81001; 85025; 85610; 85730; 86850; 86900; 86901; 93005; 94150; 96374; 96375; C1713; J0690; J1580; J1650; J1885; J2250; J2270; J2370; J2405; J3010; J3370; J7030; J7050